=== PATIENT | male | born 1950 | race Caucasian/White ===

== ENCOUNTER 2019-06-24 14:37 | Emergency (ER) | payer BC ==
[~2019-06-24] VITALS: Ht 172.7 cm; Wt 68.0 kg
--- NOTE | ~2019-06-24 | EKG ---
[place], [place] ELECTROCARDIOGRAM REPORT NAME: MASSIMO MARTINEZ UNIT #: [id number] ROOM: DOCTOR: EPIPHANY DRAFT REPORT BIRTHDATE: [birth year] [facility] Test Date: 2019-06-24 Test Time: 17:01:34 Pat Name: MASSIMO MARTINEZ Department: ED Room: 18 Gender: M Internal Security Manager: [email or web address].AL : 1950 Requested By: VALERY RANGEL Order Number: [id number] Reading MD: Laura Covington MD Measurements Intervals [place] Rate: 53 P: 25 RI: 125 QRS: 66 QRSD: 114 T: 56 QT: 454 QTc: 427 Interpretive Statements Sinus rhythm Borderline intraventricular conduction delay Low voltage, extremity leads Electronically Signed On 06-25-2019 12:18:17 PDT by Laura Covington MD CM:[email or web address]:ELECTROCARDIOGRAM REPORT 1701 [id number] VALERY RANGEL EPIPHANY DRAFT REPORT VALERY RANGEL
[~2019-06-24 14:37] MED LIST: AMOXICILLIN500 MG PO; DAYPRO600 M1 PO; FLONASE 0.05% 121 EA NAS; IBUPROFEN600 MG PO; NKHM; VICODIN 500 MG-1 TAB PO
[2019-06-24 14:38] VITALS: BP 170/86
[2019-06-24 15:15] LABS: BASO % 0.5 % (0.0-1.0); EOS # 0.3 10*3/uL (0.0-0.4); EOS % 4.5 % (1.0-4.0); HEMATOCRIT 45.1 % (42.0-52.0); HEMOGLOBIN 15.1 g/dl (14.0-18.0); LYMPH # 2.3 10*3/uL (1.3-4.4); MEAN CELL VOLUME 100.4 fl (80.0-94.0); MEAN CORPUSCULAR HGB 33.6 pg (27.0-31.0); MEAN CORPUSCULAR HGB CONC 33.5 g/dl (33.0-37.0); MEAN PLATELET VOLUME 10.2 fl (9.6-12.3); MONO # 0.6 10*3/uL (0.1-1.0); MONO % 9.2 % (3.0-9.0); NEUT # 3.4 10*3/uL (2.3-7.9); NEUT % 50.6 % (47.0-73.0); PLATELET COUNT AUTOMATED 251 10*3/uL (130-400); RED BLOOD COUNT 4.49 10*6/uL (4.50-5.90); RED CELL DISTRI WIDTH 13.7 % (0-14.5); WHITE BLOOD COUNT 6.7 10*3/uL (4.8-10.8)
[2019-06-24 15:28] LABS: ALBUMIN 3.9 gm/dl (3.1-4.5); ALKALINE PHOSPHATASE 77 U/L (45-117); BUN 7 mg/dl (7-24); CHLORIDE 101 mmol/L (98-107); SGOT/AST 23 IU/L (3-35); SGPT/ALT 19 U/L (12-78); SODIUM 137 mmol/L (136-145); TOTAL PROTEIN 7.9 gm/dL (6.4-8.2)
[2019-06-24 15:34] LABS: BILIRUBIN NEGATIVE (NEGATIVE); BLOOD NEGATIVE (NEGATIVE); CLARITY CLEAR (CLEAR); COLOR YELLOW (YELLOW); GLUCOSE NEGATIVE (NEGATIVE); KETONE NEGATIVE (NEGATIVE); LEUKO ESTERASE TRACE (NEGATIVE); NITRITE NEGATIVE (NEGATIVE); PH 6.5 (5.0-9.0); UROBILINOGEN 0.2 E.U./dl (0.2-1.0)
[2019-06-24 15:49] LABS: RBC 0-2 rbc/hpf (0-2)
[2019-06-24] MEDS ORDERED: PREDNISONE50 MG PO (17:27)
[2019-06-24] MEDS ORDERED: TESSALON PERLE100 M1 PO (17:27)
[2019-06-24] MEDS ORDERED: PROAIR HFA8.5 GM INH (17:27)
[2019-06-24] MEDS ORDERED: DOXYCYCLINE100 M3 PO (17:27)
== END 2019-06-24 17:45 | disposition home or self-care (01) ==
LOC: ED 14:37
PROVIDERS: Nurse Practitioner
DX: J44.9 Chronic obstructive pulmonary disease, unspecified (principal)

== ENCOUNTER → 2021-07-02 | Outpatient (CLI) | payer BC ==
[~2021-07-02] MED LIST changes: +DOXYCYCLINE100 M3 PO; +PREDNISONE50 MG PO; +PROAIR HFA8.5 GM INH; +TESSALON PERLE100 M1 PO
== END | disposition home or self-care (01) ==
LOC: COVID19 16:20
PROVIDERS: ATTEND Internal Medicine
DX: U07.1 COVID-19 (principal)

== ENCOUNTER → 2021-08-03 | Outpatient (CLI) | payer BC | END | disposition home or self-care (01) | LOC: COVID19 15:31 | PROVIDERS: ATTEND Podiatrist Foot & Ankle Surgery | DX: Z11.52 Encounter for screening for COVID-19 (principal) ==

== ENCOUNTER 2022-05-29 14:56 | Emergency (ER) | payer MEDICARE ==
[2022-05-29 14:58] VITALS: BP 164/87
[2022-05-29] MEDS ORDERED: PREDNISONE20 M1 PO (18:55)
[2022-05-29] MEDS ORDERED: PROVENTIL HFA6.7 GM INH (18:55)
== END 2022-05-29 19:07 | disposition home or self-care (01) ==
LOC: ED 14:56
DX: J44.9 Chronic obstructive pulmonary disease, unspecified (principal); Z20.822 Contact with and (suspected) exposure to COVID-19; Z79.899 Other long term (current) drug therapy

== ENCOUNTER → 2022-06-12 | Outpatient (CLI) | payer MEDICARE ==
[~2022-06-12] MED LIST changes: +PREDNISONE20 M1 PO; +PROVENTIL HFA6.7 GM INH
== END | disposition home or self-care (01) ==
LOC: RESCLI 02:04
PROVIDERS: ATTEND Emergency Medicine
DX: I10 Essential (primary) hypertension (principal); J43.9 Emphysema, unspecified; J92.9 Pleural plaque without asbestos; Z79.899 Other long term (current) drug therapy

== ENCOUNTER 2022-07-08 12:38 | Emergency (ER) | payer MEDICARE ==
[~2022-07-08] VITALS: Ht 170.1 cm; Wt 61.7 kg
[2022-07-08 14:00] VITALS: BP 158/77
[2022-07-08] MEDS ORDERED: AMLODIPINE BES2.5 MG PO (14:02)
[2022-07-08] MEDS ORDERED: LISINOPRIL10 M1 PO (14:02)
[2022-07-08 15:21] LABS: BUN 6 mg/dl (7-24); CHLORIDE 110 mmol/L (98-107); CREATININE 0.82 mg/dL (0.70-1.30); POTASSIUM 4.1 mmol/L (3.5-5.1); SODIUM 139 mmol/L (136-145)
[2022-07-08 16:10] LABS: BASO % 0.4 % (0.0-1.0); EOS # 0.3 10*3/uL (0.0-0.4); HEMATOCRIT 45.1 % (42.0-52.0); LYMPH # 2.7 10*3/uL (1.3-4.4); LYMPH % 28.7 % (27.0-41.0); MEAN CELL VOLUME 101.3 fl (80.0-94.0); MEAN CORPUSCULAR HGB 34.4 pg (27.0-31.0); MEAN CORPUSCULAR HGB CONC 33.9 g/dl (33.0-37.0); MONO # 0.7 10*3/uL (0.1-1.0); MONO % 7.3 % (3.0-9.0); NEUT # 5.7 10*3/uL (2.3-7.9); NEUT % 60.3 % (47.0-73.0); PLATELET COUNT AUTOMATED 251 10*3/uL (130-400); RED BLOOD COUNT 4.45 10*6/uL (4.50-5.90); RED CELL DISTRI WIDTH 13.9 % (0-14.5); WHITE BLOOD COUNT 9.4 10*3/uL (4.8-10.8)
== END 2022-07-08 16:49 | disposition home or self-care (01) ==
LOC: ED 12:38
PROVIDERS: Emergency Medicine
DX: M47.812 Spondylosis without myelopathy or radiculopathy, cervical region (principal); M25.511 Pain in right shoulder; J44.9 Chronic obstructive pulmonary disease, unspecified; Z79.899 Other long term (current) drug therapy; X50.0XXA Overexertion from strenuous movement or load, initial encounter; Y93.89 Activity, other specified; Y92.512 Supermarket, store or market as the place of occurrence of the external cause; Y99.8 Other external cause status

== ENCOUNTER 2022-09-04 08:38 | Emergency (ER) | payer MEDICARE ==
[~2022-09-04] VITALS: Ht 172.7 cm; Wt 61.2 kg
[~2022-09-04 08:38] MED LIST changes: +AMLODIPINE BES2.5 MG PO; +LISINOPRIL10 M1 PO
[2022-09-04 08:46] VITALS: BP 164/73
[2022-09-04 09:59] LABS: BASO % 0.6 % (0.0-1.0); EOS # 0.3 10*3/uL (0.0-0.4); EOS % 4.9 % (1.0-4.0); HEMATOCRIT 40.9 % (42.0-52.0); LYMPH # 2.2 10*3/uL (1.3-4.4); LYMPH % 31.2 % (27.0-41.0); MEAN CELL VOLUME 100.7 fl (80.0-94.0); MEAN CORPUSCULAR HGB CONC 33.7 g/dl (33.0-37.0); MEAN PLATELET VOLUME 9.7 fl (9.6-12.3); MONO # 0.6 10*3/uL (0.1-1.0); MONO % 8.2 % (3.0-9.0); NEUT # 3.8 10*3/uL (2.3-7.9); NEUT % 54.8 % (47.0-73.0); PLATELET COUNT AUTOMATED 240 10*3/uL (130-400); RED BLOOD COUNT 4.06 10*6/uL (4.50-5.90); RED CELL DISTRI WIDTH 14.1 % (0-14.5); WHITE BLOOD COUNT 6.9 10*3/uL (4.8-10.8)
[2022-09-04 10:16] LABS: ALKALINE PHOSPHATASE 57 U/L (46-116); BUN 9 mg/dl (9-23); CHLORIDE 103 mmol/L (98-107); CREATININE 0.75 mg/dL (0.70-1.30); SODIUM 137 mmol/L (136-145); TOTAL PROTEIN 6.8 gm/dL (6.0-8.0)
[2022-09-04 10:26] LABS: SGPT/ALT < 7 U/L (10-49)
[2022-09-04] MEDS ORDERED: PREDNISONE20 M1 PO (11:10)
== END 2022-09-04 11:23 | disposition home or self-care (01) ==
LOC: ED 08:38
PROVIDERS: Family Medicine
DX: J44.9 Chronic obstructive pulmonary disease, unspecified (principal); F10.90 Alcohol use, unspecified, uncomplicated; R91.1 Solitary pulmonary nodule; Z20.822 Contact with and (suspected) exposure to COVID-19

== ENCOUNTER 2023-03-21 09:31 | Emergency (ER) | payer MEDICARE ==
[~2023-03-21] VITALS: Ht 167.6 cm; Wt 58.5 kg
[2023-03-21 09:43] VITALS: BP 154/71
[2023-03-21 10:19] LABS: BASO % 0.3 % (0.0-1.0); HEMATOCRIT 45.9 % (42.0-52.0); LYMPH # 1.4 10*3/uL (1.3-4.4); LYMPH % 9.4 % (27.0-41.0); MEAN CELL VOLUME 97.7 fl (80.0-94.0); MEAN CORPUSCULAR HGB 33.6 pg (27.0-31.0); MEAN CORPUSCULAR HGB CONC 34.4 g/dl (33.0-37.0); MEAN PLATELET VOLUME 9.7 fl (9.6-12.3); MONO # 1.3 10*3/uL (0.1-1.0); MONO % 8.9 % (3.0-9.0); NEUT # 12.2 10*3/uL (2.3-7.9); PLATELET COUNT AUTOMATED 203 10*3/uL (130-400); RED CELL DISTRI WIDTH 13.9 % (0-14.5); WHITE BLOOD COUNT 15.1 10*3/uL (4.8-10.8)
[2023-03-21 10:29] LABS: ACT PARTIAL THROMBO TIME 30.5 SECONDS (20.0-32.1); INTERNATIONAL NORM RATIO 1.1 (2.0-3.5)
[2023-03-21 10:39] LABS: ALKALINE PHOSPHATASE 76 U/L (46-116); BUN 9 mg/dl (9-23); CHLORIDE 102 mmol/L (98-107); POTASSIUM 3.6 mmol/L (3.4-5.1); SGPT/ALT 7 U/L (10-49); TOTAL PROTEIN 7.4 gm/dL (6.0-8.0)
[2023-03-21] MEDS ORDERED: LEVOFLOXACIN500 MG PO (11:21)
[2023-03-21 11:30] LABS: BILIRUBIN Negative (Negative); BLOOD Trace-Lysed (Negative); CLARITY Clear (Clear); COLOR Yellow (Yellow); GLUCOSE Negative (Negative); KETONE Trace (Negative); LEUKO ESTERASE 1+ (Negative); NITRITE Negative (Negative); SPECIFIC GRAVITY 1.015 (1.001-1.030)
[2023-03-21 11:44] LABS: BACTERIA 1+; WBC 21-30 wbc/hpf (0-5)
== END 2023-03-21 11:39 | disposition home or self-care (01) ==
LOC: ED 09:31
PROVIDERS: Emergency Medicine
DX: J18.9 Pneumonia, unspecified organism (principal); Z20.822 Contact with and (suspected) exposure to COVID-19

== ENCOUNTER → 2024-05-12 | Outpatient (CLI) | payer OTHER ==
[~2024-05-12] MED LIST changes: +LEVOFLOXACIN500 MG PO
== END | disposition home or self-care (01) ==
LOC: RAD 08:37
PROVIDERS: ATTEND General Practice
DX: M47.812 Spondylosis without myelopathy or radiculopathy, cervical region (principal); G56.21 Lesion of ulnar nerve, right upper limb; M48.02 Spinal stenosis, cervical region

== ENCOUNTER → 2024-06-22 | Outpatient (CLI) | payer OTHER ==
[2024-06-22 12:45] LABS: BASO # 0.1 10*3/uL (0.0-0.1); BASO % 0.9 % (0.0-1.0); EOS # 0.2 10*3/uL (0.0-0.4); EOS % 2.5 % (1.0-4.0); HEMATOCRIT 41.2 % (42.0-52.0); LYMPH # 2.6 10*3/uL (1.3-4.4); LYMPH % 32.2 % (27.0-41.0); MEAN CELL VOLUME 98.1 fl (80.0-94.0); MEAN CORPUSCULAR HGB 33.8 pg (27.0-31.0); MEAN CORPUSCULAR HGB CONC 34.5 g/dl (33.0-37.0); MEAN PLATELET VOLUME 10.8 fl (9.6-12.3); MONO # 0.6 10*3/uL (0.1-1.0); MONO % 7.4 % (3.0-9.0); NEUT # 4.5 10*3/uL (2.3-7.9); NEUT % 56.7 % (47.0-73.0); PLATELET COUNT AUTOMATED 239 10*3/uL (130-400); RED CELL DISTRI WIDTH 13.1 % (0-14.5); WHITE BLOOD COUNT 7.9 10*3/uL (4.8-10.8)
[2024-06-22 13:02] LABS: ALKALINE PHOSPHATASE 68 U/L (46-116); BUN 5 mg/dl (9-23); CHLORIDE 103 mmol/L (98-107); CHOLESTEROL 184 mg/dL (<200); LDL CHOLESTEROL 122 mg/dL (9-159); POTASSIUM 3.4 mmol/L (3.4-5.1); SGPT/ALT 7 U/L (5-49); TRIGLYCERIDES 81 mg/dl (<150)
== END | disposition home or self-care (01) ==
LOC: LAB 12:21
PROVIDERS: ATTEND Nurse Practitioner Family
DX: Z13.220 Encounter for screening for lipoid disorders (principal); Z13.29 Encounter for screening for other suspected endocrine disorder; Z13.1 Encounter for screening for diabetes mellitus; I10 Essential (primary) hypertension; J43.9 Emphysema, unspecified; Z76.89 Persons encountering health services in other specified circumstances

== ENCOUNTER → 2024-07-09 | Outpatient (CLI) | payer OTHER | END | disposition home or self-care (01) | LOC: CT 07-07 09:00 | PROVIDERS: ATTEND Nurse Practitioner Family | DX: Z12.2 Encounter for screening for malignant neoplasm of respiratory organs (principal); J43.9 Emphysema, unspecified; R91.1 Solitary pulmonary nodule; I25.10 Atherosclerotic heart disease of native coronary artery without angina pectoris; Z87.891 Personal history of nicotine dependence ==

== ENCOUNTER → 2025-01-26 | Outpatient (CLI) | payer OTHER ==
[2025-01-26 15:16] LABS: BASO # 0.1 10*3/uL (0.0-0.1); BASO % 0.6 % (0.0-1.0); EOS # 0.3 10*3/uL (0.0-0.4); EOS % 3.8 % (1.0-4.0); HEMATOCRIT 45.6 % (42.0-52.0); MEAN CELL VOLUME 98.9 fl (80.0-94.0); MEAN CORPUSCULAR HGB 33.4 pg (27.0-31.0); MEAN CORPUSCULAR HGB CONC 33.8 g/dl (33.0-37.0); MEAN PLATELET VOLUME 10.8 fl (9.6-12.3); MONO # 0.6 10*3/uL (0.1-1.0); MONO % 7.8 % (3.0-9.0); NEUT # 4.9 10*3/uL (2.3-7.9); NEUT % 62.5 % (47.0-73.0); PLATELET COUNT AUTOMATED 272 10*3/uL (130-400); RED BLOOD COUNT 4.61 10*6/uL (4.50-5.90); RED CELL DISTRI WIDTH 14.1 % (0-14.5); WHITE BLOOD COUNT 7.8 10*3/uL (4.8-10.8)
[2025-01-26 15:27] LABS: ALKALINE PHOSPHATASE 67 U/L (46-116); BUN 9 mg/dl (9-23); CHLORIDE 105 mmol/L (98-107); CHOLESTEROL 194 mg/dL (<200); LDL CHOLESTEROL 105 mg/dL (9-159); POTASSIUM 4.5 mmol/L (3.4-5.1); SGPT/ALT 10 U/L (5-49); TOTAL PROTEIN 7.5 gm/dL (6.0-8.0); TRIGLYCERIDES 120 mg/dl (<150)
== END | disposition home or self-care (01) ==
LOC: LAB 10:18
PROVIDERS: ATTEND Nurse Practitioner Family
DX: I10 Essential (primary) hypertension (principal); J43.9 Emphysema, unspecified